=== PATIENT | male | born 2005 | race Two or more races ===

== ENCOUNTER 2025-02-05 23:58 | Emergency (ER) | payer BC ==
[~2025-02-05] VITALS: Ht 185.4 cm; Wt 68.0 kg
[2025-02-06] MEDS ORDERED: TDAP [DIPH/PERTUSSIS/TET] 0.5 ML VIAL IM ONE (00:54)
[2025-02-06] MEDS ORDERED: LIDOCAINE 1%-EPI 1:100,000 20 ML VIAL ONE (00:54)
[2025-02-06] MEDS: TDAP [DIPH/PERTUSSIS/TET] 0.5 ML VIAL IM ONE (01:02)
[2025-02-06] MEDS: LIDOCAINE 1%-EPI 1:100,000 50 ML VIAL IJ ONE (01:03)
[2025-02-06] MEDS ORDERED: ACET-3102 PO (01:49)
[2025-02-06] MEDS ORDERED: IBUP-2314 PO (01:49)
[2025-02-06] MEDS ORDERED: CEPH-570 PO (01:49)
[2025-02-06] MEDS ORDERED: CEPHALEXIN MONOHYDRATE 500 MG CAPSULE PO ONE (02:01)
[2025-02-06] MEDS: CEPHALEXIN MONOHYDRATE 500 MG CAPSULE PO ONE (02:05)
[2025-02-06 03:32] VITALS: BP 117/75; TEMP 98.7; O2SAT 97
== END 2025-02-06 03:33 | disposition home or self-care (01) ==
LOC: ER 02-06 00:11
DX: S81.812A Laceration without foreign body, left lower leg, initial encounter (principal); Z79.1 Long term (current) use of non-steroidal anti-inflammatories (NSAID); W25.XXXA Contact with sharp glass, initial encounter; Y93.89 Activity, other specified; Y92.89 Other specified places as the place of occurrence of the external cause; Y99.8 Other external cause status
CPT/HCPCS: 12004; 73564; 90471; 90715; 99283; J3490